=== PATIENT | male | born 1960 | race Two or more races ===

== ENCOUNTER 2024-05-19 12:17 | Outpatient (REF) | payer MEDICARE, SELFPAY | END 2024-05-19 12:18 | disposition home or self-care (01) | LOC: HO.HOSX 12:17 | PROVIDERS: Visit Provider Physician Assistant | DX: M17.11 Unilateral primary osteoarthritis, right knee (principal); M25.562 Pain in left knee | CPT/HCPCS: 20610; 73560; 73562; 99202; J1010; J2003 ==

== ENCOUNTER 2024-05-19 13:28 | Outpatient (AMB) | payer MEDICARE, MEDICAID, SELFPAY ==
--- NOTE | 2024-05-19 13:45 | MHC.OFFVIS ---
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 Patient reports his pain has been present for about a year after his knee was pressed against a screw. He was seen by his PCP who prescribed meloxicam which did not help. Currently he has constant pain that gets worse at work with prolong standing, kneeling and bending. He has constant pain located at the medial aspect and fluctuates in intensity. Denies numbness or tingling. He has intermittent swelling. No previous tx due to no insurance. 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 He reports his pain started after his knee was pressed against a screw. He was seen by his PCP who prescribed meloxicam which did not provide him any relief. He currently states he has intermittent swelling and constant pain at the medial aspect of his knee that fluctuates in intensity. His pain is aggravated at work with prolonged standing, kneeling and bending. He also reports difficulty with standing after prolonged sitting. He denies any numbness or tingling. He has not had any treatment in the past. He works in construction. [facility] Social History (Updated 05/19/24 @ 13:59 by Otilia Harmon Michelle) Patient Tobacco Use Status: Never used Tobacco Current occupational status: employed Current occupation: maintenance Review of Systems Const All systems reviewed & are unremarkable except as noted in HPI and below Physical Exam Vital Signs: BMI result Body Mass Index 30.5 Const General: cooperative, healthy appearing, comfortable, no acute distress, well developed and alert Orientation/consciousness: patient oriented x3 HEENT Head: Yes normal to inspection, Yes normocephalic and Yes atraumatic Eyes General: appearance normal, both eyes and all related structures Resp Effort & Inspection: normal respiratory effort and able to speak in complete sentences Cardio Rate: regular rate Peripheral pulses: Peripheral pulses 2+ throughout GI Palpation (GI): Soft to palpation Skin Lesions: no lesions Rashes: no rashes Neuro General: patient oriented x3 Extrem Other: Right knee: Skin intact, no erythema or joint effusion. Tenderness along the medial joint line. Full ROM with crepitus. Negative Brittany?s. No ligamentous laxity. NVI. Office Procedures AMB Joint Injection/Aspiration Joint Injection/Aspiration Primary Site: right knee Prep: site was prepped using aseptic technique, ethochloride spray was applied and injection warnings given Injected: 80 mg of, DepoMedrol, with 8 mL of, 1% plain lidocaine and in the joint Approach Used: anterolateral Procedure: The patient tolerated the procedure well and there was some relief with the local anesthesia Coding - Glenohumeral/Tronchanteric Bursa/Intraarticular Procedure code (CPT) selection complete Results Reviewed Results Reviewed: Xrays were obtained in the office today and personally reviewed by me of the right knee show mild medial compartment oa with pf oa Assessment & Plan Assessment & Plan (1) Osteoarthritis of right knee: Code(s): M17.11 - Unilateral primary osteoarthritis, right knee Category: Medical Qualifiers: Osteoarthritis type: primary Qualified Code(s): M17.11 - Unilateral primary osteoarthritis, right knee Plan We discussed options today, which include steroid injection. The patient did consent to move forward with the right knee injection, which was tolerated well. I recommended rest, ice, and elevation and OTC anti-inflammatories as needed for discomfort. She was also referred to a course of physical therapy in the office today. If symptoms persist or worsens over the next 6-8 weeks, patient will contact the office, otherwise follow-up as needed. ? Orders: Orders XR knee RT 3V Today M17.11 - Unilateral primary osteoarthritis, right knee XR knee LT 1V Today M25.562 - Pain in left knee PT Evaluation and Treatment Today M17.11 - Unilateral primary osteoarthritis, right knee Patient Instructions: Scribed for Inez Beckett PA-C, by Brandon Banda medical administrative technician, on 05/19/2024 at 1:45 PM EST.? I, Inez Beckett PA-C, have personally reviewed and agree with the information entered by the scribe. Coding Level of Care Code New Pt Level 3 (44052) Complex EM visit Add On G2211 Diagnoses Primary osteoarthritis of right knee M17.11 Osteoarthritis type: primary CPT Codes Coding - Joint 7: 10967 - Glenohumeral/Tronchanteric Bursa/Intraarticular ([id number])
[2024-05-19 13:58] VITALS: BMI 30.5
== END 2024-05-19 14:25 | disposition home or self-care (01) ==
LOC: HO.HOS 13:42
PROVIDERS: PCP Physician Assistant; Visit Provider Physician Assistant
DX: M17.11 Unilateral primary osteoarthritis, right knee (principal)
CPT/HCPCS: 20610; 99203